=== PATIENT | male | born 1955 | race African-American/Black ===

== ENCOUNTER 2020-01-06 18:10 | Inpatient (IN) | payer MEDICARE, MEDICAID ==
[~2020-01-06] VITALS: Ht 182.9 cm; Wt 140.2 kg
[2020-01-06] MEDS ORDERED: SODIUM CHLORIDE 0.9% 1000ML BAG (SEPSIS BOLUS) IV ONE (18:45)
[2020-01-06 19:35] LABS: BG BASE EXCESS -5.7 mmol/L (-2.0-2.0); BG DEOXYHEMOGLOBIN 1.9 % (0.0-5.0); BG FRACTION INSPIRED OXYGEN 44; BG HCO3 ACT 20.8 mmol/L (22.0-26.0); BG OXYGEN SATURATION 98.1 % (92.0-98.5); BG OXYHEMOGLOBIN 96.1 % (94.0-97.0); BG PCO2 45.4 mmHg (35.0-45.0); BG PH 7.278 (7.350-7.450); BG PO2 116.8 mmHg (75.0-100.0); BG SAMPLE SITE RIGHT RADIAL; BG VENT MODE NASAL CANNULA
[2020-01-06 19:54] LABS: HEMATOCRIT. 30.1 % (42.0-52.0); HEMOGLOBIN. 9.6 g/dL (14.0-18.0); MEAN CORPUSCULAR HEMOGLOBIN 29.8 pg (28.0-32.0); MEAN CORPUSCULAR VOLUME 93.7 fL (80.0-94.0); MEAN PLATELET VOLUME 8.8 fl (7.4-10.4); PLATELET 188 x1000/uL (130-400); RED BLOOD CELL COUNT 3.21 mill/uL (4.7-6.1); RED CELL DISTRIBUTION WIDTH 13.8 % (11.6-14.6)
[2020-01-06] MEDS ORDERED: CLONIDINE 0.2MG TABLET PO NR (20:00)
[2020-01-06 20:01] LABS: PROTHROMBIN TIME 11.2 sec (9.6-11.0)
[2020-01-06 20:04] LABS: CHLORIDE 113 mEq/L (98-107)
[2020-01-06 20:28] LABS: PLATELET ESTIMATE NORMAL
[2020-01-06 22:45] LABS: CLARITY URINE CLEAR (CLEAR); COLOR URINE YELLOW (YELLOW); KETONES URINE NEGATIVE (NEGATIVE); LEUKOCYTE ESTERASE URINE TRACE (NEGATIVE); NITRITE URINE NEGATIVE (NEGATIVE); OCCULT BLOOD URINE 1+ (NEGATIVE); PH URINE 7.5 (4.5-8.0); PROTEIN URINE 2+ (NEGATIVE); SPECIFIC GRAVITY URINE 1.008 (1.005-1.030); UROBILINOGEN URINE 0.2 E.U./dL (0.2-1.0)
[2020-01-06] MEDS ORDERED: HYDRALAZINE 20MG/ML VIAL IV ONE (23:30)
[2020-01-07] VITALS (22 sets, daily range): BP systolic 130–202; BP diastolic 71–135
[2020-01-07] MEDS ORDERED: ETOMIDATE 2MG/ML 10ML VIAL IV ONE (00:15)
[2020-01-07] MEDS ORDERED: PROPOFOL 10MG/ML 100ML 100 ML IV SCH (00:15)
[2020-01-07] MEDS ORDERED: SUCCINYLCHOLINE CHLORIDE 200MG/10ML IV ONE (00:15)
[2020-01-07 01:49] LABS: BG BASE EXCESS -6.5 mmol/L (-2.0-2.0); BG CARBOXYHEMOGLOBIN 0.8 % (0.5-1.5); BG DEOXYHEMOGLOBIN 1.6 % (0.0-5.0); BG FRACTION INSPIRED OXYGEN 50; BG HCO3 ACT 20.4 mmol/L (22.0-26.0); BG METHEMOGLOBIN 0.1 % (0.0-1.5); BG OXYGEN SATURATION 98.4 % (92.0-98.5); BG OXYHEMOGLOBIN 97.5 % (94.0-97.0); BG PCO2 46.2 mmHg (35.0-45.0); BG PH 7.262 (7.350-7.450); BG PO2 133.6 mmHg (75.0-100.0); BG SAMPLE SITE RIGHT RADIAL; BG TIDAL VOLUME(mL) 600 mL; BG TOTAL HEMOGLOBIN 11.1 g/dL (12.0-18.0); BG VENT MODE VENT - A/C; BG VENT RATE 16 set
[2020-01-07] MEDS ORDERED: ACETAMINOPHEN 325MG TABLET PO PRN (02:30)
[2020-01-07] MEDS ORDERED: ENOXAPARIN 40MG/0.4ML SYR SUBCUT SCH (02:30)
[2020-01-07] MEDS ORDERED: ONDANSETRON HCL 4MG/2ML INJ IV PRN (02:30)
[2020-01-07] MEDS ORDERED: CLONIDINE 0.1MG TABLET PO PRN (02:30)
[2020-01-07] MEDS ORDERED: GUAIFENESIN 200MG/10ML SUGAR FREE UDC PO PRN (02:30)
[2020-01-07] MEDS: DEXT 5%/0.45% NACL 1000ML 1,000 ML IV SCH ×2 (03:00→16:55)
[2020-01-07] MEDS ORDERED: AZITHROMYCIN 500 MG in DEXT 5% WATER 250 ML IV NR (03:15)
[2020-01-07] MEDS ORDERED: PANTOPRAZOLE SODIUM 40 MG/VIAL IV NR (03:15)
[2020-01-07] MEDS ORDERED: CEFTRIAXONE 1 G PREMIX 50 ML IV NR (03:15)
[2020-01-07] MEDS ORDERED: AMLODIPINE 10MG TABLET PO NR (09:45)
[2020-01-07] MEDS ORDERED: HYDRALAZINE 20MG/ML VIAL IV PRN (11:45)
[2020-01-07] MEDS ORDERED: AMLODIPINE 10MG TABLET PO SCH (12:15)
[2020-01-07] MEDS ORDERED: ENALAPRIL 1.25MG/ML VIAL 1ML IV PRN (15:00)
[2020-01-07] MEDS: PROPOFOL 10MG/ML 100ML 100 ML IV PRN ×3 (16:54→23:15)
[2020-01-07] MEDS: ENOXAPARIN 40MG/0.4ML SYR SUBCUT SCH (16:55)
[2020-01-08] VITALS (50 sets, daily range): BP systolic 122–164; BP diastolic 66–92
[2020-01-08] MEDS ORDERED: CEFTRIAXONE 1 G PREMIX 50 ML IV SCH (02:00)
[2020-01-08] MEDS: PROPOFOL 10MG/ML 100ML 100 ML IV PRN ×5 (02:36→21:25)
[2020-01-08] MEDS ORDERED: AZITHROMYCIN 500 MG in DEXT 5% WATER 250 ML IV SCH (03:00)
[2020-01-08 05:53] LABS: CHLORIDE 110 mEq/L (98-107)
[2020-01-08 08:36] LABS: BASOPHILS % 0.6 % (0.0-2.0); EOSINOPHILS % 2.5 % (0.0-5.0); HEMOGLOBIN. 8.4 g/dL (14.0-18.0); MEAN CORPUSCULAR HEMOGLOBIN 30.1 pg (28.0-32.0); MEAN CORPUSCULAR VOLUME 92.8 fL (80.0-94.0); MEAN PLATELET VOLUME 8.9 fl (7.4-10.4); MONOCYTES % 8.8 % (2.0-8.0); NEUTROPHILS % 76.1 % (40.0-76.0); PLATELET 154 x1000/uL (130-400); RED CELL DISTRIBUTION WIDTH 13.8 % (11.6-14.6)
[2020-01-08 10:03] LABS: BG BASE EXCESS 0.5 mmol/L (-2.0-2.0); BG CARBOXYHEMOGLOBIN 0.3 % (0.5-1.5); BG DEOXYHEMOGLOBIN 1.5 % (0.0-5.0); BG FRACTION INSPIRED OXYGEN 40; BG HCO3 ACT 25.2 mmol/L (22.0-26.0); BG METHEMOGLOBIN 0.3 % (0.0-1.5); BG OXYGEN SATURATION 98.5 % (92.0-98.5); BG OXYHEMOGLOBIN 97.9 % (94.0-97.0); BG PCO2 40.7 mmHg (35.0-45.0); BG PH 7.409 (7.350-7.450); BG PO2 131.8 mmHg (75.0-100.0); BG SAMPLE SITE RIGHT RADIAL; BG TIDAL VOLUME(mL) 600 mL; BG TOTAL HEMOGLOBIN 10.2 g/dL (12.0-18.0); BG VENT MODE VENT - A/C; BG VENT RATE 18 set
[2020-01-08] MEDS: AMLODIPINE 10MG TABLET PO SCH (10:52)
[2020-01-08] MEDS: FOLIC ACID/VITAMIN B COMP W-C TABLET PO SCH (10:52)
[2020-01-08] MEDS: CALCIUM ACETATE 667MG CAPSULE PO SCH ×3 (10:52→17:03)
[2020-01-08] MEDS: PANTOPRAZOLE SODIUM 40 MG/VIAL IV SCH (10:52)
[2020-01-08] MEDS: CEFTRIAXONE 1 G PREMIX 50 ML IV SCH (13:34)
[2020-01-08] MEDS: ENOXAPARIN 40MG/0.4ML SYR SUBCUT SCH (14:31)
[2020-01-08 22:41] LABS: BG BASE EXCESS -1.4 mmol/L (-2.0-2.0); BG CARBOXYHEMOGLOBIN 0.1 % (0.5-1.5); BG DEOXYHEMOGLOBIN 2.4 % (0.0-5.0); BG FRACTION INSPIRED OXYGEN 36; BG HCO3 ACT 24.4 mmol/L (22.0-26.0); BG METHEMOGLOBIN 0.1 % (0.0-1.5); BG OXYGEN SATURATION 97.6 % (92.0-98.5); BG OXYHEMOGLOBIN 97.4 % (94.0-97.0); BG PCO2 46.2 mmHg (35.0-45.0); BG PH 7.341 (7.350-7.450); BG PO2 109.6 mmHg (75.0-100.0); BG SAMPLE SITE RIGHT RADIAL; BG TOTAL HEMOGLOBIN 9.1 g/dL (12.0-18.0); BG VENT MODE NASAL CANNULA
[2020-01-09] VITALS (34 sets, daily range): BP systolic 107–210; BP diastolic 40–114
[2020-01-09] MEDS ORDERED: AZITHROMYCIN 500 MG in DEXT 5% WATER 250 ML IV SCH (02:00)
[2020-01-09 07:09] LABS: HEMATOCRIT. 29.1 % (42.0-52.0); HEMOGLOBIN. 9.5 g/dL (14.0-18.0); MEAN CORPUSCULAR HEMOGLOBIN 30.1 pg (28.0-32.0); MEAN CORPUSCULAR VOLUME 92.4 fL (80.0-94.0); MEAN PLATELET VOLUME 9.2 fl (7.4-10.4); PLATELET 189 x1000/uL (130-400); RED BLOOD CELL COUNT 3.15 mill/uL (4.7-6.1); RED CELL DISTRIBUTION WIDTH 13.4 % (11.6-14.6)
[2020-01-09] MEDS: AMLODIPINE 10MG TABLET PO SCH (08:04)
[2020-01-09] MEDS: CALCIUM ACETATE 667MG CAPSULE PO SCH ×3 (08:04→15:40)
[2020-01-09] MEDS: PANTOPRAZOLE SODIUM 40 MG/VIAL IV SCH (08:04)
[2020-01-09] MEDS: FOLIC ACID/VITAMIN B COMP W-C TABLET PO SCH (08:04)
[2020-01-09 08:19] LABS: BG BASE EXCESS 1.4 mmol/L (-2.0-2.0); BG CARBOXYHEMOGLOBIN 0.2 % (0.5-1.5); BG DEOXYHEMOGLOBIN 2.8 % (0.0-5.0); BG HCO3 ACT 26.8 mmol/L (22.0-26.0); BG METHEMOGLOBIN 0.3 % (0.0-1.5); BG OXYGEN SATURATION 97.2 % (92.0-98.5); BG OXYHEMOGLOBIN 96.7 % (94.0-97.0); BG PCO2 46.3 mmHg (35.0-45.0); BG PH 7.381 (7.350-7.450); BG PO2 91.9 mmHg (75.0-100.0); BG SAMPLE SITE RIGHT RADIAL; BG VENT MODE NASAL CANNULA
[2020-01-09 08:38] LABS: PLATELET ESTIMATE NORMAL
[2020-01-09] MEDS: CEFTRIAXONE 1 G PREMIX 50 ML IV SCH (12:20)
[2020-01-09] MEDS ORDERED: LIDOCAINE HCL 1% 20ML VIAL (Pyxis) INJ ONE (13:16)
[2020-01-09] MEDS: ENOXAPARIN 40MG/0.4ML SYR SUBCUT SCH (15:39)
[2020-01-09] MEDS: DOXAZOSIN MESYLATE 4MG TABLET PO SCH ×2 (15:40→22:33)
[2020-01-09] MEDS: HYDRALAZINE HCL 50MG TABLET PO SCH ×2 (15:40→22:32)
[2020-01-10] VITALS: BP 153/55
[2020-01-10 04:00] VITALS: BP 140/60
[2020-01-10] MEDS: HYDRALAZINE HCL 50MG TABLET PO SCH ×3 (06:11→22:12)
[2020-01-10 08:00] VITALS: BP 148/65
[2020-01-10] MEDS: PANTOPRAZOLE SODIUM 40 MG/VIAL IV SCH (09:46)
[2020-01-10] MEDS: AMLODIPINE 10MG TABLET PO SCH (09:47)
[2020-01-10] MEDS: FOLIC ACID/VITAMIN B COMP W-C TABLET PO SCH (09:47)
[2020-01-10] MEDS: CALCIUM ACETATE 667MG CAPSULE PO SCH ×3 (09:47→17:00)
[2020-01-10] MEDS: DOXAZOSIN MESYLATE 4MG TABLET PO SCH ×2 (09:47→22:11)
[2020-01-10] MEDS ORDERED: IOHEXOL-300 100 ML BOTTLE ONE (11:17)
[2020-01-10 11:54] LABS: BASOPHILS % 0.3 % (0.0-2.0); EOSINOPHILS % 3.8 % (0.0-5.0); HEMATOCRIT. 31.9 % (42.0-52.0); HEMOGLOBIN. 10.1 g/dL (14.0-18.0); LYMPHOCYTES % 9.1 % (20.0-50.0); MEAN CORPUSCULAR HEMOGLOBIN 30.1 pg (28.0-32.0); MEAN CORPUSCULAR VOLUME 95.3 fL (80.0-94.0); MONOCYTES % 8.2 % (2.0-8.0); NEUTROPHILS % 78.6 % (40.0-76.0); RED BLOOD CELL COUNT 3.35 mill/uL (4.7-6.1)
[2020-01-10] MEDS: CEFTRIAXONE 1 G PREMIX 50 ML IV SCH (13:00)
[2020-01-10] MEDS ORDERED: IPRATROPIUM/ALBUTEROL 0.5-3(2.5)MG/3ML NEB HHN PRN (14:45)
[2020-01-10] MEDS: ENOXAPARIN 40MG/0.4ML SYR SUBCUT SCH (14:53)
[2020-01-10 17:13] VITALS: BP 151/70
[2020-01-10] MEDS: LORAZEPAM 2MG/ML CPJ IV PRN (19:47)
[2020-01-10 20:00] VITALS: BP 140/70
[2020-01-11] VITALS: BP 129/64
[2020-01-11] MEDS: LORAZEPAM 2MG/ML CPJ IV PRN ×2 (03:29→15:26)
[2020-01-11] MEDS: HYDRALAZINE HCL 50MG TABLET PO SCH ×3 (07:01→22:06)
[2020-01-11 08:02] VITALS: BP 164/84
[2020-01-11] MEDS: AMLODIPINE 10MG TABLET PO SCH (09:00)
[2020-01-11] MEDS: DOXAZOSIN MESYLATE 4MG TABLET PO SCH ×2 (09:00→22:06)
[2020-01-11] MEDS: FAMOTIDINE 20MG/2ML VIAL IV SCH (10:00)
[2020-01-11] MEDS: FOLIC ACID/VITAMIN B COMP W-C TABLET PO SCH (10:01)
[2020-01-11] MEDS: CALCIUM ACETATE 667MG CAPSULE PO SCH ×3 (10:01→17:48)
[2020-01-11 12:02] VITALS: BP 165/77
[2020-01-11] MEDS: IPRATROPIUM/ALBUTEROL 0.5-3(2.5)MG/3ML NEB HHN SCH (13:01)
[2020-01-11] MEDS: CEFTRIAXONE 1 G PREMIX 50 ML IV SCH (14:41)
[2020-01-11] MEDS: ENOXAPARIN 40MG/0.4ML SYR SUBCUT SCH (14:41)
[2020-01-11 16:02] VITALS: BP 126/75
[2020-01-11 20:00] VITALS: BP 154/58
[2020-01-12] VITALS: BP 136/67
[2020-01-12 04:00] VITALS: BP 109/59
[2020-01-12] MEDS: HYDRALAZINE HCL 50MG TABLET PO SCH ×2 (05:12→13:26)
[2020-01-12] MEDS: IPRATROPIUM/ALBUTEROL 0.5-3(2.5)MG/3ML NEB HHN SCH (07:58)
[2020-01-12 08:00] VITALS: BP 114/51
[2020-01-12] MEDS ORDERED: AMOXICILLIN/POTASSIUM CLAVULANATE 500/125MG TAB PO SCH (09:45)
[2020-01-12] MEDS: AMLODIPINE 10MG TABLET PO SCH (10:33)
[2020-01-12] MEDS: FAMOTIDINE 20MG/2ML VIAL IV SCH (10:33)
[2020-01-12] MEDS: DOXAZOSIN MESYLATE 4MG TABLET PO SCH (10:33)
[2020-01-12] MEDS: FOLIC ACID/VITAMIN B COMP W-C TABLET PO SCH (10:33)
[2020-01-12] MEDS: CALCIUM ACETATE 667MG CAPSULE PO SCH ×3 (10:34→18:03)
[2020-01-12 12:00] VITALS: BP 155/67
[2020-01-12 12:18] LABS: BASOPHILS % 0.7 % (0.0-2.0); HEMATOCRIT. 29.8 % (42.0-52.0); HEMOGLOBIN. 9.6 g/dL (14.0-18.0); LYMPHOCYTES % 10.9 % (20.0-50.0); MEAN CORPUSCULAR HEMOGLOBIN 29.9 pg (28.0-32.0); MEAN CORPUSCULAR VOLUME 92.5 fL (80.0-94.0); MEAN PLATELET VOLUME 8.3 fl (7.4-10.4); MONOCYTES % 7.8 % (2.0-8.0); NEUTROPHILS % 76.6 % (40.0-76.0); PLATELET 206 x1000/uL (130-400); RED BLOOD CELL COUNT 3.22 mill/uL (4.7-6.1); RED CELL DISTRIBUTION WIDTH 13.9 % (11.6-14.6)
[2020-01-12] MEDS: ENOXAPARIN 40MG/0.4ML SYR SUBCUT SCH (15:21)
[2020-01-12 16:00] VITALS: BP 120/80
[2020-01-12 19:34] VITALS: BP 108/59
[2020-01-12] MEDS ORDERED: FAMO-135 PO (19:58)
[2020-01-12] MEDS ORDERED: HYDR-4135 MT (19:58)
[2020-01-12] MEDS ORDERED: DOXA4TAB2 PO (20:01)
[2020-01-12] MEDS ORDERED: AMLO10TA4 PO (20:03)
[2020-01-12] MEDS ORDERED: AMOX-424 PO (20:05)
[2020-01-12] MEDS ORDERED: AMOX250S70 MT (20:05)
== END 2020-01-12 20:20 | disposition home health service (06) | DRG 871 ==
LOC: ER 18:10 → EDBEDREQ 22:27 → EDBEDREQSVC 22:27 → EDBEDREQ 23:38 → MICUSO 01-07 00:05 → EDBEDREQSVC 01-07 00:06 → EDBEDREQ 01-07 02:48 → ENRESERV 01-07 14:14 → 7WST 01-09 14:05 → 5WST 01-10 16:40 → 6WST 01-10 20:27
PROVIDERS: ADMIT Hospitalist; ATTEND Hospitalist
PROC: 5A1935Z Respiratory Ventilation, Less than 24 Consecutive Hours (ICD-10-PCS; principal; 2020-01-07)
PROC: 5A1D70Z Performance of Urinary Filtration, Intermittent, Less than 6 Hours Per Day (ICD-10-PCS; 2020-01-07)
PROC: 0BH17EZ Insertion of Endotracheal Airway into Trachea, Via Natural or Artificial Opening (ICD-10-PCS; 2020-01-07)
PROC: 5A1D70Z Performance of Urinary Filtration, Intermittent, Less than 6 Hours Per Day (ICD-10-PCS; 2020-01-08)
PROC: 0JPT3XZ Removal of Tunneled Vascular Access Device from Trunk Subcutaneous Tissue and Fascia, Percutaneous Approach (ICD-10-PCS; 2020-01-10)
PROC: 02HV33Z Insertion of Infusion Device into Superior Vena Cava, Percutaneous Approach (ICD-10-PCS; 2020-01-10)
PROC: B548ZZA Ultrasonography of Superior Vena Cava, Guidance (ICD-10-PCS; 2020-01-10)
PROC: 5A1D70Z Performance of Urinary Filtration, Intermittent, Less than 6 Hours Per Day (ICD-10-PCS; 2020-01-10)
PROC: 5A1D70Z Performance of Urinary Filtration, Intermittent, Less than 6 Hours Per Day (ICD-10-PCS; 2020-01-11)
DX: A41.89 Other specified sepsis (principal); J96.00 Acute respiratory failure, unspecified whether with hypoxia or hypercapnia; I50.33 Acute on chronic diastolic (congestive) heart failure; N18.6 End stage renal disease; J18.9 Pneumonia, unspecified organism; I13.2 Hypertensive heart and chronic kidney disease with heart failure and with stage 5 chronic kidney disease, or end stage renal disease; I16.1 Hypertensive emergency; Z68.41 Body mass index [BMI] 40.0-44.9, adult; D63.1 Anemia in chronic kidney disease; E66.01 Morbid (severe) obesity due to excess calories; E87.5 Hyperkalemia; D69.6 Thrombocytopenia, unspecified; I89.0 Lymphedema, not elsewhere classified; Z20.828 Contact with and (suspected) exposure to other viral communicable diseases; R94.31 Abnormal electrocardiogram [ECG] [EKG]; D72.810 Lymphocytopenia; Z99.2 Dependence on renal dialysis; Z85.3 Personal history of malignant neoplasm of breast; Z90.12 Acquired absence of left breast and nipple; Z79.899 Other long term (current) drug therapy
CPT/HCPCS: 36415; 36589; 36600; 71045; 76937; 80048; 80053; 81003; 82375; 82728; 82805; 83605; 83615; 83880; 84145; 84478; 84484; 85025; 85379; 86140; 87070; 87077; 87635; 87804; 93005; 94002; 94003; 94640; 97162; 97166; 99291; C1752; C9113; J0330; J0360; J0456; J0696; J1650; J2060; J2704; J3490; J7030; J7060; Q9967

== ENCOUNTER 2020-09-24 01:13 | Inpatient (IN) | payer MEDICARE, MEDICAID ==
[~2020-09-24] VITALS: Ht 188 cm; Wt 131.1 kg
[~2020-09-24 01:13] MED LIST: AMLO10TA4 PO; AMOX-424 PO; AMOX250S70 MT; DOXA4TAB2 PO; FAMO-135 PO; HYDR-4135 MT
[2020-09-24] MEDS ORDERED: IOHEXOL-350 100 ML BOTTLE ONE (02:01)
[2020-09-24] MEDS ORDERED: ASPIRIN 325MG EC TABLET PO ONE (02:15)
[2020-09-24] MEDS: ATORVASTATIN CALCIUM 40MG TABLET PO SCH ×2 (02:18→21:04)
[2020-09-24 02:33] LABS: CHLORIDE 115 mEq/L (98-107)
[2020-09-24 02:37] LABS: ETHANOL BLOOD < 10 mg/dL; PROTHROMBIN TIME 10.2 sec (9.6-11.0)
[2020-09-24 02:40] LABS: LDL CHOLESTEROL 53 mg/dL (5-100)
[2020-09-24 03:17] LABS: BASOPHILS % 0.2 % (0.0-2.0); EOSINOPHILS % 1.3 % (0.0-5.0); HEMOGLOBIN. 10.9 g/dL (14.0-18.0); LYMPHOCYTES % 8.3 % (20.0-50.0); MEAN CORPUSCULAR HEMOGLOBIN 28.3 pg (28.0-32.0); MEAN CORPUSCULAR VOLUME 87.8 fL (80.0-94.0); MEAN PLATELET VOLUME 7.7 fl (7.4-10.4); MONOCYTES % 7.4 % (2.0-8.0); NEUTROPHILS % 82.8 % (40.0-76.0); PLATELET 224 x1000/uL (130-400); RED BLOOD CELL COUNT 3.87 mill/uL (4.7-6.1); RED CELL DISTRIBUTION WIDTH 16.2 % (11.6-14.6)
[2020-09-24 03:36] LABS: CLARITY URINE CLEAR (CLEAR); COLOR URINE YELLOW (YELLOW); KETONES URINE NEGATIVE (NEGATIVE); LEUKOCYTE ESTERASE URINE 3+ (NEGATIVE); NITRITE URINE NEGATIVE (NEGATIVE); OCCULT BLOOD URINE 1+ (NEGATIVE); PH URINE 8.5 (4.5-8.0); PROTEIN URINE 2+ (NEGATIVE); SPECIFIC GRAVITY URINE 1.009 (1.005-1.030); UROBILINOGEN URINE 0.2 E.U./dL (0.2-1.0)
[2020-09-24 03:48] LABS: *AMPHETAMINES SCREEN URINE NEGATIVE (NEGATIVE); *BARBITURATES SCREEN URINE NEGATIVE (NEGATIVE); *BENZODIAZEPINES SCREEN URINE NEGATIVE (NEGATIVE); *COCAINE SCREEN URINE NEGATIVE (NEGATIVE); METHADONE URINE SCREEN NEGATIVE (NEGATIVE); OPIATES URINE SCREEN NEGATIVE (NEGATIVE); PHENCYCLIDINE URINE SCREEN NEGATIVE (NEGATIVE)
[2020-09-24 03:49] LABS: CANNABINOID URINE SCREEN NEGATIVE (NEGATIVE)
[2020-09-24 15:01] VITALS: BP 142/64
[2020-09-24 16:00] VITALS: BP 144/75
[2020-09-24] MEDS ORDERED: CLONIDINE 0.1MG TABLET PO PRN (17:00)
[2020-09-24] MEDS ORDERED: CEFTRIAXONE 1 G PREMIX 50 ML IV SCH (17:00)
[2020-09-24] MEDS ORDERED: ONDANSETRON HCL 4MG/2ML INJ IV PRN (17:00)
[2020-09-24] MEDS: NICOTINE 14MG PATCH TD SCH (17:52)
[2020-09-24] MEDS: ENOXAPARIN 40MG/0.4ML SYR SUBCUT SCH (17:52)
[2020-09-24 18:00] VITALS: BP 132/67
[2020-09-24 20:00] VITALS: BP 126/64
[2020-09-24] MEDS: CEFTRIAXONE 1,000 MG in DEXTROSE 5% WATER 50 ML IV SCH (21:05)
[2020-09-24 22:00] VITALS: BP 135/56
[2020-09-24] MEDS ORDERED: HYDROCODONE/ACETAMINOPHEN 5/325MG TABLET PO PRN (23:30)
[2020-09-25] VITALS (10 sets, daily range): BP systolic 112–149; BP diastolic 66–92
[2020-09-25 07:48] LABS: BASOPHILS % 0.6 % (0.0-2.0); EOSINOPHILS % 1.5 % (0.0-5.0); HEMATOCRIT. 33.8 % (42.0-52.0); HEMOGLOBIN. 10.9 g/dL (14.0-18.0); LYMPHOCYTES % 10.6 % (20.0-50.0); MEAN CORPUSCULAR HEMOGLOBIN 28.6 pg (28.0-32.0); MEAN CORPUSCULAR VOLUME 88.5 fL (80.0-94.0); MEAN PLATELET VOLUME 8.1 fl (7.4-10.4); MONOCYTES % 5.5 % (2.0-8.0); NEUTROPHILS % 81.8 % (40.0-76.0); PLATELET 253 x1000/uL (130-400); RED BLOOD CELL COUNT 3.82 mill/uL (4.7-6.1); RED CELL DISTRIBUTION WIDTH 15.9 % (11.6-14.6)
[2020-09-25] MEDS ORDERED: ASPIRIN 81MG TABLET PO SCH (09:00)
[2020-09-25] MEDS: NICOTINE 14MG PATCH TD SCH (10:17)
[2020-09-25] MEDS ORDERED: HALOPERIDOL LACTATE 5MG/ML VIAL IM PRN (12:15)
[2020-09-25] MEDS ORDERED: LORAZEPAM 2MG/ML CPJ IM PRN (12:15)
[2020-09-25] MEDS ORDERED: ASPI-1406 MT (16:41)
[2020-09-25] MEDS ORDERED: LEVO500T2 MT (16:41)
[2020-09-25] MEDS: CEFTRIAXONE 1,000 MG in DEXTROSE 5% WATER 50 ML IV SCH (18:00)
[2020-09-25] MEDS: ENOXAPARIN 40MG/0.4ML SYR SUBCUT SCH (18:00)
== END 2020-09-25 21:31 | disposition home or self-care (01) | DRG 689 ==
LOC: ER 01:13 → 3WST 03:31 → EDBEDREQTM 03:34 → ENRESERV 14:20
PROVIDERS: ADMIT Internal Medicine; ATTEND Internal Medicine
PROC: 5A1D70Z Performance of Urinary Filtration, Intermittent, Less than 6 Hours Per Day (ICD-10-PCS; principal; 2020-09-24)
DX: N39.0 Urinary tract infection, site not specified (principal); E43 Unspecified severe protein-calorie malnutrition; N18.6 End stage renal disease; G45.9 Transient cerebral ischemic attack, unspecified; E87.0 Hyperosmolality and hypernatremia; E87.1 Hypo-osmolality and hyponatremia; I12.0 Hypertensive chronic kidney disease with stage 5 chronic kidney disease or end stage renal disease; D64.9 Anemia, unspecified; D72.829 Elevated white blood cell count, unspecified; E87.6 Hypokalemia; E87.8 Other disorders of electrolyte and fluid balance, not elsewhere classified; F17.210 Nicotine dependence, cigarettes, uncomplicated; G51.0 Bell's palsy; Z85.3 Personal history of malignant neoplasm of breast; Z68.37 Body mass index [BMI] 37.0-37.9, adult; Z99.2 Dependence on renal dialysis; Z99.3 Dependence on wheelchair; Z79.899 Other long term (current) drug therapy; B96.4 Proteus (mirabilis) (morganii) as the cause of diseases classified elsewhere
CPT/HCPCS: 36415; 70496; 70551; 71045; 80048; 80053; 80305; 80320; 81003; 82962; 83721; 83880; 84484; 85025; 87077; 87186; 93005; 99285; J0696; J1650; J7040; J7060; Q9967; G0480

== ENCOUNTER 2021-08-20 16:21 | Inpatient (IN) | payer OTHER, MEDICAID ==
[~2021-08-20] VITALS: Ht 190.5 cm; Wt 138.8 kg
[~2021-08-20 16:21] MED LIST changes: -AMOX-424 PO; -AMOX250S70 MT; +ASPI-1406 MT; +LEVO500T2 MT
[2021-08-20] MEDS ORDERED: ESCI20TA37 PO (18:54)
[2021-08-20] MEDS ORDERED: QUET400T PO (18:54)
[2021-08-20] MEDS ORDERED: LASIX (18:54)
[2021-08-20] MEDS ORDERED: CALCIUM PHOSPHATE (18:54)
[2021-08-20] MEDS ORDERED: TRAZ-252 PO (18:54)
[2021-08-20 21:20] LABS: CHLORIDE 111 mEq/L (98-107)
[2021-08-20 21:28] LABS: HEMATOCRIT. 31.8 % (42.0-52.0); HEMOGLOBIN. 10.1 g/dL (14.0-18.0); MEAN CORPUSCULAR HEMOGLOBIN 27.6 pg (28.0-32.0); MEAN PLATELET VOLUME 8.1 fl (7.4-10.4); PLATELET 177 x1000/uL (130-400); RED BLOOD CELL COUNT 3.65 mill/uL (4.7-6.1); RED CELL DISTRIBUTION WIDTH 17.2 % (11.6-14.6)
[2021-08-20 22:29] LABS: PLATELET ESTIMATE NORMAL
[2021-08-20] MEDS ORDERED: HYDRALAZINE 20MG/ML VIAL IV ONE (22:45)
[2021-08-20] MEDS ORDERED: INSULIN REGULAR (HUMULIN R) 300UNITS/3ML VIAL IV ONE (22:45)
[2021-08-20] MEDS ORDERED: DEXTROSE 50% WATER 50ML SYRINGE IV ONE (22:45)
[2021-08-20] MEDS ORDERED: HALOPERIDOL LACTATE 5MG/ML VIAL IM ONE (22:45)
[2021-08-21] MEDS ORDERED: HALOPERIDOL LACTATE 5MG/ML VIAL IM ONE ×2 (01:00→02:30)
[2021-08-21] MEDS ORDERED: LORAZEPAM 2MG/ML CPJ IM ONE ×2 (01:00→02:30)
[2021-08-21] MEDS ORDERED: SODIUM BICARBONATE 8.4% 1 MEQ/ML 50ML SYR IV ONE (02:45)
[2021-08-21] MEDS ORDERED: MIDAZOLAM HCL 2 MG/2 ML VIAL IV ONE (04:15)
[2021-08-21] MEDS ORDERED: ONDANSETRON HCL 4MG/2ML INJ IV PRN (08:30)
[2021-08-21] MEDS ORDERED: GUAIFENESIN 200MG/10ML SUGAR FREE UDC PO PRN (08:30)
[2021-08-21] MEDS ORDERED: DOCUSATE SODIUM 100MG CAPSULE PO PRN (08:30)
[2021-08-21] MEDS ORDERED: MAGNESIUM/ALUMINUM HYDROXIDE/SIMETHICONE 30ML UDC PO PRN (08:30)
[2021-08-21] MEDS ORDERED: HYDROMORPHONE HCL/PF 2MG/ML CPJ IV PRN (08:30)
[2021-08-21] MEDS ORDERED: HYDROCODONE/APAP 7.5/325MG 1 TAB TABLET PO PRN (08:30)
[2021-08-21] MEDS ORDERED: ACETAMINOPHEN 325MG TABLET PO PRN (08:30)
[2021-08-21] MEDS ORDERED: NALOXONE HCL 0.4MG/ML VIAL IV PRN (08:45)
[2021-08-21] MEDS: AMLODIPINE 10MG TABLET PO SCH ×2 (09:48→10:32)
[2021-08-21 10:30] VITALS: BP 188/110
[2021-08-21 10:42] VITALS: BP 188/110
[2021-08-21 12:25] VITALS: BP 184/90
[2021-08-21 16:08] VITALS: BP 110/84
[2021-08-21 20:00] VITALS: BP 208/91
[2021-08-21 20:21] LABS: HEPATITIS B SURFACE ANTIGEN NEGATIVE
[2021-08-22] VITALS: BP 150/57
[2021-08-22 04:00] VITALS: BP 189/75
[2021-08-22 05:48] LABS: HEMATOCRIT. 28.6 % (42.0-52.0); HEMOGLOBIN. 9.1 g/dL (14.0-18.0); MEAN CORPUSCULAR HEMOGLOBIN 27.9 pg (28.0-32.0); MEAN CORPUSCULAR VOLUME 87.5 fL (80.0-94.0); MEAN PLATELET VOLUME 8.2 fl (7.4-10.4); PLATELET 169 x1000/uL (130-400); RED BLOOD CELL COUNT 3.27 mill/uL (4.7-6.1); RED CELL DISTRIBUTION WIDTH 17.1 % (11.6-14.6)
[2021-08-22] MEDS: CLONIDINE 0.1MG TABLET PO PRN (06:10)
[2021-08-22 06:57] LABS: CHLORIDE 109 mEq/L (98-107)
[2021-08-22 07:08] LABS: LDL CHOLESTEROL 57 mg/dL (5-100)
[2021-08-22 07:09] LABS: HDL CHOLESTEROL 55 mg/dL (40-59)
[2021-08-22 08:25] VITALS: BP 151/91
[2021-08-22] MEDS: FOLIC ACID/VITAMIN B COMP W-C TABLET PO SCH (09:09)
[2021-08-22 12:15] VITALS: BP 181/91
[2021-08-22] MEDS: DOXAZOSIN MESYLATE 4MG TABLET PO SCH ×2 (12:22→17:31)
[2021-08-22] MEDS: FAMOTIDINE 20MG TABLET PO SCH (12:22)
[2021-08-22] MEDS: HYDRALAZINE HCL 50MG TABLET PO SCH ×2 (12:22→17:30)
[2021-08-22] MEDS: CITALOPRAM HYDROBROMIDE 10MG TABLET PO SCH (13:30)
[2021-08-22 14:07] LABS: PLATELET ESTIMATE NORMAL
[2021-08-22 16:25] VITALS: BP 148/62
[2021-08-22 20:00] VITALS: BP 152/79
[2021-08-23] VITALS: BP 131/62
[2021-08-23 04:00] VITALS: BP 156/63
[2021-08-23 07:16] LABS: BASOPHILS % 0.9 % (0.0-2.0); EOSINOPHILS % 3.1 % (0.0-5.0); HEMATOCRIT. 31.4 % (42.0-52.0); HEMOGLOBIN. 9.8 g/dL (14.0-18.0); LYMPHOCYTES % 11.2 % (20.0-50.0); MEAN CORPUSCULAR HEMOGLOBIN 27.7 pg (28.0-32.0); MEAN PLATELET VOLUME 8.3 fl (7.4-10.4); MONOCYTES % 7.8 % (2.0-8.0); PLATELET 170 x1000/uL (130-400); RED BLOOD CELL COUNT 3.53 mill/uL (4.7-6.1); RED CELL DISTRIBUTION WIDTH 17.6 % (11.6-14.6)
[2021-08-23 08:00] VITALS: BP 174/84
[2021-08-23] MEDS: AMLODIPINE 10MG TABLET PO SCH (09:00)
[2021-08-23] MEDS: FOLIC ACID/VITAMIN B COMP W-C TABLET PO SCH (09:00)
[2021-08-23] MEDS: CITALOPRAM HYDROBROMIDE 10MG TABLET PO SCH (09:00)
[2021-08-23] MEDS: DOXAZOSIN MESYLATE 4MG TABLET PO SCH ×2 (09:00→17:00)
[2021-08-23] MEDS: FAMOTIDINE 20MG TABLET PO SCH (09:00)
[2021-08-23] MEDS: HYDRALAZINE HCL 50MG TABLET PO SCH ×3 (09:00→17:00)
[2021-08-23 12:00] VITALS: BP 183/79
[2021-08-23] MEDS: CLONIDINE 0.1MG TABLET PO PRN (12:40)
[2021-08-23] MEDS ORDERED: HALOPERIDOL LACTATE 5MG/ML VIAL IM PRN ×2 (13:15→17:45)
[2021-08-23 20:00] VITALS: BP 131/64
[2021-08-23 21:07] VITALS: BP 131/64
== END 2021-08-23 22:00 | disposition short-term general hospital (02) | DRG 124 ==
LOC: ER 16:21 → EDBEDREQDT 08-21 06:33 → EDBEDREQ 08-21 06:33 → EDBEDREQTM 08-21 06:33 → ENRESERV 08-21 07:37 → 6WST 08-21 11:05
PROVIDERS: ADMIT Internal Medicine; ATTEND Internal Medicine
PROC: 5A1D70Z Performance of Urinary Filtration, Intermittent, Less than 6 Hours Per Day (ICD-10-PCS; principal; 2021-08-21)
PROC: 5A1D70Z Performance of Urinary Filtration, Intermittent, Less than 6 Hours Per Day (ICD-10-PCS; 2021-08-23)
DX: S02.31XA Fracture of orbital floor, right side, initial encounter for closed fracture (principal); E43 Unspecified severe protein-calorie malnutrition; N18.6 End stage renal disease; S02.40EA Zygomatic fracture, right side, initial encounter for closed fracture; G93.40 Encephalopathy, unspecified; I12.0 Hypertensive chronic kidney disease with stage 5 chronic kidney disease or end stage renal disease; S09.90XA Unspecified injury of head, initial encounter; W01.0XXA Fall on same level from slipping, tripping and stumbling without subsequent striking against object, initial encounter; D64.9 Anemia, unspecified; E87.5 Hyperkalemia; S00.03XA Contusion of scalp, initial encounter; F20.9 Schizophrenia, unspecified; R55 Syncope and collapse; Z85.3 Personal history of malignant neoplasm of breast; Z87.440 Personal history of urinary (tract) infections; Z90.10 Acquired absence of unspecified breast and nipple; Z91.19 Patient's noncompliance with other medical treatment and regimen; Z99.2 Dependence on renal dialysis; Y93.89 Activity, other specified; Y99.8 Other external cause status; Y92.098 Other place in other non-institutional residence as the place of occurrence of the external cause
CPT/HCPCS: 36415; 70486; 71045; 80048; 80053; 80061; 84484; 85025; 86705; 86709; 86803; 87340; 93970; 99291; A4565; J0360; J1630; J1815; J2060; J2250; J3490

== ENCOUNTER 2021-09-10 09:02 | Emergency (ER) | payer OTHER, MEDICAID ==
[~2021-09-10] VITALS: Ht 172.7 cm; Wt 113.0 kg
[~2021-09-10 09:02] MED LIST changes: +CALCIUM PHOSPHATE; +ESCI20TA37 PO; +LASIX; +QUET400T PO; +TRAZ-252 PO
[2021-09-10 09:49] LABS: BASOPHILS % 0.3 % (0.0-2.0); EOSINOPHILS % 1.9 % (0.0-5.0); HEMOGLOBIN. 9.1 g/dL (14.0-18.0); LYMPHOCYTES % 7.7 % (20.0-50.0); MEAN CORPUSCULAR HEMOGLOBIN 29.4 pg (28.0-32.0); MEAN CORPUSCULAR VOLUME 94.1 fL (80.0-94.0); MEAN PLATELET VOLUME 7.8 fl (7.4-10.4); MONOCYTES % 9.5 % (2.0-8.0); NEUTROPHILS % 80.6 % (40.0-76.0); PLATELET 220 x1000/uL (130-400); RED BLOOD CELL COUNT 3.08 mill/uL (4.7-6.1); RED CELL DISTRIBUTION WIDTH 17.7 % (11.6-14.6)
[2021-09-10 09:55] LABS: CHLORIDE 101 mEq/L (98-107)
[2021-09-10 09:58] LABS: ETHANOL BLOOD < 10 mg/dL
[2021-09-10 19:30] VITALS: BP 115/70
== END 2021-09-10 23:15 | disposition short-term general hospital (02) ==
LOC: ER 09:02
DX: F33.9 Major depressive disorder, recurrent, unspecified (principal); R45.851 Suicidal ideations; R94.31 Abnormal electrocardiogram [ECG] [EKG]; I12.0 Hypertensive chronic kidney disease with stage 5 chronic kidney disease or end stage renal disease; N18.6 End stage renal disease; Z99.2 Dependence on renal dialysis
CPT/HCPCS: 36415; 71045; 80048; 80307; 80320; 80329; 84484; 85025; 93005; 99285; G0480